=== PATIENT | female | born 1990 | race Caucasian/White ===

== ENCOUNTER 2023-07-01 12:48 | Outpatient (OUT) | payer OTHER, SELFPAY ==
--- NOTE | 2023-07-01 12:49 | US_ITS ---
[address] [address] Patient Name: ALEXANDER DEL CID MRN: [id number] date: 1990 Sex: F Assigned Patient Location: US Current Patient Location: US Accession/Order Number: [id number] Exam Date: 07/01/2023 12:50 Report Date: 07/01/2023 17:44 At the request of: JULIA MCKNIGHT Procedure: US OB growth EXAMINATION: US OB growth HISTORY: Diet Controlled Gestational Diabetes In Third Trimester COMPARISON: No relevant comparison available. FINDINGS: Heart Rate: 137.8 bpm Amniotic Fluid Volume: 12.0 cm Number: 1.0 Position: Cephalic presentation, longitudinal lie Maximum Vertical Pocket: 0.8 cm cm 4.7 cm cm 4.6 cm cm 2.0 cm cm BIOMETRY: BPD: 9.0 cm cm; 36 weeks 3 days; 82% HC: 32.0 cmcm; 36 weeks 0 days, 31% AC: 32.9 cm cm; 36 weeks 6 days, 79% FL: 6.8 cm cm; 34 weeks 5 days; 26.6 % % EFW: 2871.1 grams, 6 lbs. 2 oz., 59% FL/AC: 20.5 FL/BPD: 75.1 HC/AC: 1.0 GESTATIONAL AGE: Age by EDC: 35 weeks 3 days MARCELA by EDC: 08/02/2023 Age by US: 35 weeks 6 days MARCELA by US: 07/30/2023 US/US OB growth IMPRESSION: Normal interval growth Electronically authenticated by: MICHELLE HENNESSY Date: 07/01/2023 17:44
== END 2023-07-01 12:49 | disposition home or self-care (01) ==
LOC: US 12:48
PROVIDERS: Visit Provider Midwife
DX: O24.410 Gestational diabetes mellitus in pregnancy, diet controlled (principal); Z3A.35 35 weeks gestation of pregnancy
CPT/HCPCS: 76816

== ENCOUNTER 2023-07-08 15:10 | Outpatient (OUT) | payer OTHER, SELFPAY ==
--- NOTE | 2023-07-08 15:15 | US_ITS ---
[address] [address] Patient Name: ALEXANDER DEL CID MRN: [id number] date: 1990 Sex: F Assigned Patient Location: US Current Patient Location: US Accession/Order Number: [id number] Exam Date: 07/08/2023 15:20 Report Date: 07/08/2023 15:52 At the request of: JULIA MCKNIGHT Procedure: US OB growth EXAMINATION: US OB growth HISTORY: Diet controlled gestational diabetes mellitus O24.410 COMPARISON: Ultrasound OB growth 07/01/2023 FINDINGS: Heart Rate: 151.7 bpm Number: 1.0 Position: CEPHALIC Amniotic Fluid Volume: 16.0 cm Maximum Vertical Pocket: 5.5 cm BIOMETRY: BPD: 9.0 cm cm; 36 weeks 5 days; 68% HC: 33.2 cmcm; 37 weeks 6 days; 55% AC: 33.8 cm cm; 37 weeks 5 days; 89% FL: 6.9 cm cm; 35 weeks 1 days; 18% EFW: 3083.9 grams; 69% FL/AC: 20.3 FL/BPD: 75.7 HC/AC: 1.0 GESTATIONAL AGE: Age by EDC: 36 weeks 3 days MARCELA by EDC: 08/02/2023 Age by US: 36 weeks 6 days MARCELA by US: 07/30/2023 US/US OB growth IMPRESSION: 1. Single live intrauterine with growth detailed above. Electronically authenticated by: JAMES SAEED Date: 07/08/2023 15:52
== END 2023-07-08 15:11 | disposition home or self-care (01) ==
LOC: US 15:10
PROVIDERS: Visit Provider Midwife
DX: O24.410 Gestational diabetes mellitus in pregnancy, diet controlled (principal); Z3A.36 36 weeks gestation of pregnancy
CPT/HCPCS: 76816

== ENCOUNTER 2023-07-26 23:02 | Inpatient (IN) | payer OTHER, SELFPAY ==
[2023-07-26 20:37] VITALS: BP 132/64; PULSE 100
[2023-07-26 22:00] VITALS: RESP 18
[2023-07-26 22:07] VITALS: BP 113/65; PULSE 82; TEMP 35.8
[2023-07-26 22:24] LABS: Amphetamine Screen Urine NEGATIVE (NEGATIVE); Barbiturates Screen Urine NEGATIVE (NEGATIVE); Benzodiazepines Screen Urine NEGATIVE (NEGATIVE); Buprenorphine Screen Urine NEGATIVE (NEGATIVE); Cannabinoid Screen Urine NEGATIVE (NEGATIVE); Cocaine Screen Urine NEGATIVE (NEGATIVE); Methadone Screen Urine NEGATIVE (NEGATIVE); Methamphetamines Screen Urine NEGATIVE (NEGATIVE); Opiate Screen Urine NEGATIVE (NEGATIVE); Oxycodone Screen Urine NEGATIVE (NEGATIVE); Phencyclidine Screen Urine NEGATIVE (NEGATIVE); Tricyclic Antidepressant Urine NEGATIVE (NEGATIVE)
[2023-07-26 22:40] LABS: Hematocrit 36.6 % (36.0-48.0); Hemoglobin 12.8 g/dL (12.0-16.0); Mean Corpuscular Hemoglobin 34.5 pg (26.7-34.0); Mean Corpuscular Volume 98.7 fL (81.0-99.0); Mean Platelet Volume 10.4 fL (9.5-13.5); Platelet Count 187 10^3/uL (150-450); Red Blood Count 3.71 10^6/uL (4.20-5.40); Red Cell Distribution Width 13.4 % (11.0-15.0); White Blood Count 16.2 10^3/uL (4.0-11.0)
[2023-07-27] VITALS (45 sets, daily range): BP systolic 92–125; BP diastolic 53–67; PULSE 69–114; RESP 16; TEMP 35.9–36.2
[2023-07-27] MEDS: 0.9 % SODIUM CHLORIDE 1,000 ML 125 ML IV ×3 (07:21→09:34)
--- NOTE | 2023-07-27 07:58 | PM.OBHP ---
OB - H&P: HPI History of Present Illness Chief complaint: Rule Out Labor : 3 Para: 2 Date of last menstrual period: 10/26/22 Gestational age based on last menstrual period: 39w1d Indications for induction: other (gestational diabetes ) History of Present Dating criteria: LMP confirmed by 1st trimester US care: good care Ultrasounds: normal 1st trimester US and normal mid trimester US complications: gestational diabetes Medical complications OB: none Labs Blood type: A (-) negative Rubella: immune RPR/VDLR: nonreactive GBS status: negative HBsAG: negative Meds Home Medications and Allergies Home Medications Medication Instructions Recorded Confirmed Type vit no.95-ferrous 1 tab PO DAILY 07/27/23 07/27/23 History fumarate 28 mg-folic acid 800 mcg tablet () Allergies Allergy/AdvReac Type Severity Reaction Status Date / Time No Known Drug Allergies Allergy Verified 07/26/23 21:56 Exam Constitutional Vital Signs, click to edit/add: Last Vital Signs Temp 96.6 F L 07/27/23 07:56 Pulse 76 07/27/23 07:57 Resp 18 07/26/23 22:00 BP 103/63 07/27/23 07:57 O2 Del Method Room Air 07/26/23 22:00 Documenting provider has reviewed patient's vital signs: yes Common normals: no apparent distress and oriented x3 Orientation/consciousness: Yes awake, Yes oriented to person, Yes oriented to place and Yes oriented to time HENCA Common normals: normocephalic Eye Common normals: EOMs intact bilaterally General eye: normal appearance of both eyes Neck & C-Spine Common normals: full ROM Lymph Lymphatic: no lymphadenopathy noted Respiratory Common normals: normal respiratory effort and clear to auscultation bilaterally Cardio Common normals: regular rate and regular rhythm Rate: regular rate Rhythm: regular rhythm GI Common normals: Normal to inspection, nondistended, normoactive bowel sounds present and soft to palpation Common normals: no CVA tenderness Back & Pelvis Common normals: no CVA tenderness Extremity Common normals: normal to inspection and full ROM Neuro Common normals: oriented x3 Psych Common normals: cooperative Results Labs Labs: Short CBC 07/26/23 Range/Units 22:20 WBC 16.2 H (4.0-11.0) 10^3/uL Hgb 12.8 (12.0-16.0) g/dL Hct 36.6 (36.0-48.0) % Plt Count 187 (150-450) 10^3/uL OB - A/P Assessment and Plan (1) Term : Plan admit for labor. Routine labor orders. Epidural when patient desires.
[2023-07-27] MEDS: ROPIVACAINE HCL/PF 400 MG/200 ML PREMIX 6 MG EPIDURAL (09:24)
[2023-07-27] MEDS: FENTANYL CITRATE/PF 100 MCG/2 ML VIAL EPIDURAL ×2 (09:26)
--- NOTE | 2023-07-27 09:33 | PM.EN ---
Event Note Event Note: 0859 to room to assess patient after epidural placement. SVE 4/80/0 AROM performed with sterile amnio hook. Return of moderate amount of clear, odorless fluid. heart tones stable before, during and after ROM. Patient tolerated well.
[2023-07-27] MEDS: OXYTOCIN/0.9 % SODIUM CHLORIDE 10 UNITS/500 ML PLAST..BAG 6 UNIT IV (12:13)
--- NOTE | 2023-07-27 13:44 | PM.OBPRCVD ---
Procedure events: Labor Augmentation Intrapartal events: None Delivery augmentation: rupture of membranes and pitocin Delivery monitor: external FHT and external uterine Route of delivery: Episiotomy Description: none Laceration description: labial (left labial repair ) Delivery repair: Vicryl Estimated blood loss (mL): 150 Anesthesia type: Epidural Disposition: no change Infant Delivery date: 07/27/23 Gender: male presentation: vertex Placental delivery description: Spontaneous cord description: 3 Vessels heart rate - 1 minute: 100 bpm or Greater respiratory effort - 1 minute: Spontaneous/Strong Cry muscle tone - 1 minute: Active Movement reflex response - 1 minute: Prompt Response color - 1 minute: Bluish Hands or Feet total score - 1 minute: 9 heart rate - 5 minute: 100 bpm or Greater respiratory effort - 5 minute: Spontaneous/Strong Cry muscle tone - 5 minute: Active Movement reflex response - 5 minute: Prompt Response color - 5 minute: Bluish Hands or Feet total score - 5 minute: 9
[2023-07-27] MEDS: OXYTOCIN/0.9 % SODIUM CHLORIDE 20 UNITS/1,000 ML PLAST..BAG 125 UNIT IV (14:00)
[2023-07-27] MEDS: GLYCERIN/WITCH HAZEL PADS 1 PAD TOPICAL (15:21)
[2023-07-27] MEDS: IBUPROFEN 400 MG TABLET 800 MG PO (15:22)
[2023-07-27] MEDS: BENZOCAINE/MENTHOL 85 GRAM SPRAY BOTTLE 1 APPLIC TOPICAL (15:22)
[2023-07-28 00:58] VITALS: BP 101/62; PULSE 82
[2023-07-28] MEDS: IBUPROFEN 400 MG TABLET 800 MG PO ×2 (00:59→08:38)
[2023-07-28 01:00] VITALS: TEMP 36.8
[2023-07-28 07:16] LABS: Basophils Absolute Auto 0.1 10^3/uL (0.0-0.1); Basophils Percent Auto 0.5 % (0.2-2.0); Eosinophils Absolute Auto 0.1 10^3/uL (0.0-0.7); Eosinophils Percent Auto 0.8 % (0.9-7.0); Hematocrit 34.1 % (36.0-48.0); Hemoglobin 11.5 g/dL (12.0-16.0); Immature Granulocytes Abs Auto 0.34 10^3/uL (0.00-0.03); Immature Granulocytes Pct Auto 2.4 % (0.0-0.5); Lymphocytes Absolute Auto 1.2 10^3/uL (1.2-3.8); Lymphocytes Percent Auto 8.5 % (20.5-60.0); Mean Corpuscular HGB Conc 33.7 g/dL (29.9-35.2); Mean Corpuscular Hemoglobin 33.8 pg (26.7-34.0); Mean Corpuscular Volume 100.3 fL (81.0-99.0); Mean Platelet Volume 10.2 fL (9.5-13.5); Monocytes Absolute Auto 0.7 10^3/uL (0.3-0.8); Monocytes Percent Auto 5.2 % (1.7-12.0); Neutrophils Absolute Auto 11.6 10^3/uL (1.4-6.5); Neutrophils Percent Auto 82.6 % (43.0-75.0); Platelet Count 140 10^3/uL (150-450); Red Cell Distribution Width 13.5 % (11.0-15.0); White Blood Count 14.1 10^3/uL (4.0-11.0)
[2023-07-28 08:28] VITALS: BP 101/68; PULSE 78
[2023-07-28] MEDS: DOCUSATE SODIUM 100 MG CAPSULE PO (08:38)
[2023-07-28] MEDS: RHO(D) IMMUNE GLOBULIN 1,500 UNIT SYRINGE 1500 UNIT IM (08:38)
[2023-07-28 09:24] VITALS: RESP 16; TEMP 36.4
--- NOTE | 2023-07-28 12:54 | PM.OBPN ---
OB - PN: Subj Subjective Patient comments: no complaints and pain well controlled [place] status: doing well Exam Constitutional Vital Signs, click to edit/add: Last Vital Signs Temp 97.5 F L 07/28/23 09:24 Pulse 78 07/28/23 08:28 Resp 16 07/28/23 09:24 BP 101/68 07/28/23 08:28 O2 Del Method Room Air 07/28/23 01:00 Documenting provider has reviewed patient's vital signs: yes Common normals: no apparent distress Respiratory Common normals: normal respiratory effort and clear to auscultation bilaterally Cardio Common normals: regular rate and regular rhythm GI Common normals: Normal to inspection, nondistended, normoactive bowel sounds present Extremity Common normals: no clubbing, cyanosis or edema and no calf tenderness Results Labs Labs: Short CBC 07/28/23 Range/Units 06:55 WBC 14.1 H (4.0-11.0) 10^3/uL Hgb 11.5 L (12.0-16.0) g/dL Hct 34.1 L (36.0-48.0) % Plt Count 140 L (150-450) 10^3/uL OB - PN: A/P Assessment and Plan (1) Term : Plan - Vaginal Delivery day: 1 Plan: routine care, discharge home and follow up 6 weeks Time Spent with Patient Time: Total time spent is greater than 50% in coordination of care (as documented) at patient's floor/unit and/or counseling patient: Total time spent with greater than 50% in coordination of care (as documented) at patient's floor/unit and/or counseling patient: less than 15 minutes
[2023-07-28 17:19] VITALS: BP 105/62; PULSE 75
[2023-07-28 17:24] VITALS: PULSE 75; RESP 14; TEMP 36.7
== END 2023-07-28 19:10 | disposition home or self-care (01) | DRG 807 ==
LOC: FBCO 23:02 → FBC 23:02
PROVIDERS: Admitting Provider Midwife; Visit Provider Midwife
DX: O24.420 Gestational diabetes mellitus in childbirth, diet controlled (principal); Z37.0 Single live birth; O70.0 First degree perineal laceration during delivery; Z3A.39 39 weeks gestation of pregnancy; Z86.16 Personal history of COVID-19; Z92.0 Personal history of contraception; Z86.03 Personal history of neoplasm of uncertain behavior; Z83.3 Family history of diabetes mellitus; Z82.49 Family history of ischemic heart disease and other diseases of the circulatory system; Z80.9 Family history of malignant neoplasm, unspecified; Z81.8 Family history of other mental and behavioral disorders; Z83.49 Family history of other endocrine, nutritional and metabolic diseases
CPT/HCPCS: 36415; 59050; 59410; 80307; 85025; 85027; 85461; 86850; 86900; 86901; 96372; 96374; 96376; J2790

== ENCOUNTER 2023-08-01 08:15 | Outpatient (OUT) | payer OTHER, SELFPAY ==
[2023-08-01 13:52] VITALS: BP 123/76; PULSE 96; RESP 16; TEMP 36.6; O2SAT 98
--- NOTE | 2023-08-01 13:56 | PC.NURSE ---
Salvador and 5 day old Maximiliano arrive for follow up visit. [place] states thing going pretty good Does relate that milk in left nipple more sore than right and even red. Harder to latch baby on left side .. States feels well, no complaints offered. Reviewed oral assessment with mom for . is a dental hygienist and is aware of tongue tie but not impact on feeding. Noted cobblestone lip blisters. Hiccups, difficult latch and shallow latch. Sometimes he slides right off LC recommends evaluation by a pediatric dentist for further care. Given infor on same and will discuss with her and decide. Aware to call for further questions or concerns with .
== END 2023-08-01 14:01 | disposition home or self-care (01) ==
LOC: FBCO 08:15
PROVIDERS: Visit Provider Midwife
DX: Z39.2 Encounter for routine postpartum follow-up (principal)